=== PATIENT | male | born 1995 | race American Indian/Alaskan Native ===

== ENCOUNTER 2020-06-10 15:33 | Emergency (ER) | payer OTHER ==
[2020-06-10 15:52] VITALS: BP 104/58
[2020-06-10] MEDS ORDERED: methylPREDNISolone Sod Succinate 125 MG/2 ML INJ IM ONE (16:03)
[2020-06-10] MEDS ORDERED: IPRATROPIUM/ALBUTEROL SULFATE 3 ML AMPUL.NEB IH ONE (16:03)
--- NOTE | 2020-06-10 16:07 | Event Note ---
ED Screening Note Date of service: 06/10/20 Time: 16:05 ED Screening Note: pt with hx asthma and tobacco abuse c/o chest tightness and SOB x 12 hrs. Took last dose of inhaler this morning Had some wheezing but improved. Denies f/c, or uri symptoms. hx asthma admission, last was 6mths ago PE: Pt not in any respiratory distress; VS stable. This initial assessment/diagnostic orders/clinical plan/treatment(s) is/are subject to change based on patients health status, clinical progression and re- assessment by fellow clinical providers in the ED. Further treatment and workup at subsequent clinical providers discretion. Patient/guardian urged not to elope from the ED as their condition may be serious if not clinically assessed and managed. Initial orders include: Duoneb tx Solumedrol IM
--- NOTE | 2020-06-10 16:41 | Emergency Department Report ---
- General Chief Complaint: Dyspnea/Respdistress Stated Complaint: DRY COUGH X 2 WEEKS Source: patient Mode of arrival: Ambulatory Limitations: No Limitations - History of Present Illness Initial Comments: 25-year-old male with a past medical history of tobacco use presents to the ER today with complaints of a cough for the past 2 weeks. Patient states that he has had a productive cough and "a little" shortness of breath for the past 2 weeks. Patient states that he was in [place] for the past 3 days, and he seems like when he came back from [place] his cough got worse. He reports associated rhinorrhea, nasal congestion and sneezing. He denies any apparent ill contacts. He denies any fever or chills. He reports no other symptoms at this time. MD Complaint: cough -: Gradual (2), week(s) (2) - Related Data Previous Rx's Medication Instructions Recorded Last Taken Type Albuterol Mdi (or & Nicu Only) 2 puff IH QID PRN #8.5 gram 06/10/20 Unknown Rx [ProAir HFA Inhaler] Azithromycin [Zithromax Z-SHARRI] 250 mg PO DAILY #1 pack 06/10/20 Unknown Rx Benzonatate [Tessalon Perles] 100 mg PO Q8HR PRN #30 capsule 06/10/20 Unknown Rx Allergies Allergy/AdvReac Type Severity Reaction Status Date / Time No Known Allergies Allergy Unverified 02/19/20 14:53 ED Review of Systems ROS: Stated complaint: DRY COUGH X 2 WEEKS Other details as noted in HPI Comment: All other systems reviewed and negative Constitutional: denies: chills, diaphoresis, fever, weakness Eyes: denies: eye pain, eye discharge, vision change ENT: congestion, other (Rhinorrhea). denies: dental pain, hearing loss, epistaxis Respiratory: cough, shortness of breath. denies: wheezing Cardiovascular: denies: chest pain, palpitations, syncope, paroxysmal nocturnal dyspnea Gastrointestinal: denies: abdominal pain, nausea, vomiting, diarrhea, constipation, hematemesis, melena, hematochezia Genitourinary: denies: urgency, dysuria Musculoskeletal: denies: back pain, joint swelling, arthralgia, myalgia Skin: denies: rash, lesions, change in color, change in hair/nails, pruritus Neurological: denies: headache, weakness, paresthesias Psychiatric: denies: anxiety, depression Hematological/Lymphatic: denies: easy bleeding, easy bruising ED Past Medical Hx - Past Medical History Previous Medical History?: No - Surgical History Past Surgical History?: No - Medications Home Medications: Home Medications Medication Instructions Recorded Confirmed Last Taken Type Albuterol Mdi (or & Nicu Only) 2 puff IH QID PRN #8.5 gram 06/10/20 Unknown Rx [ProAir HFA Inhaler] Azithromycin [Zithromax Z-SHARRI] 250 mg PO DAILY #1 pack 06/10/20 Unknown Rx Benzonatate [Tessalon Perles] 100 mg PO Q8HR PRN #30 capsule 06/10/20 Unknown Rx ED Physical Exam - General Limitations: No Limitations General appearance: alert, in no apparent distress - Head Head exam: Present: atraumatic, normocephalic, normal inspection - Eye Eye exam: Present: normal appearance, PERRL, EOMI Pupils: Present: normal accommodation - ENT ENT exam: Present: normal exam, normal orophraynx, mucous membranes moist, TM's normal bilaterally - Neck Neck exam: Present: normal inspection, full ROM. Absent: meningismus - Respiratory Respiratory exam: Present: normal lung sounds bilaterally. Absent: respiratory distress, wheezes, rales, rhonchi - Cardiovascular Cardiovascular Exam: Present: regular rate, normal rhythm, normal heart sounds - GI/Abdominal GI/Abdominal exam: Present: soft. Absent: distended, tenderness, guarding, rebound - Neurological Exam Neurological exam: Present: alert, oriented X3, CN II-XII intact, normal gait - Psychiatric Psychiatric exam: Present: normal affect, normal mood - Skin Skin exam: Present: intact ED Course Vital Signs 06/10/20 15:51 Temperature 98.3 F Pulse Rate 77 Respiratory 18 Rate Blood Pressure 104/58 [Right] O2 Sat by Pulse 99 Oximetry ED Medical Decision Making - Radiology Data Radiology results: report reviewed Ordering Physician: ANIKET PATEL Date of Service: 06/10/20 Procedure(s): XR chest routine 2V Accession Number(s): [id number] cc: ANIKET PATEL Fluoro Time In Minutes: CHEST 2 VIEWS INDICATION: cough x 2 weeks. COMPARISON: None. FINDINGS: Support devices: None. Heart: Within normal limits. Lungs/Pleura: No acute air space or interstitial disease. No significant pleural effusion. IMPRESSION: No acute findings. Signer Name: Brent Gar MD Signed: 06/10/2020 5:29 PM Workstation Name: [id number] Transcribed By: TINO Dictated By: Brent Gar MD Electronically Authenticated By: Brent Gar MD Signed Date/Time: 06/10/201728 DD/ 28 TD/TT: - Medical Decision Making 25-year-old male with a past medical history of tobacco use presents to the ER today with complaints of a cough for the past 2 weeks. Patient states that he has had a productive cough and "a little" shortness of breath for the past 2 weeks. Patient states that he was in [place] for the past 3 days, and he seems like when he came back from [place] his cough got worse. He reports associated rhinorrhea, nasal congestion and sneezing. He denies any apparent ill contacts. He denies any fever or chills. He reports no other symptoms at this time. While in the waiting room waiting for the x-ray patient got a call from his saying that she was COVID-19 positive. 180: Chest x-ray shows nothing acute. Patient is well-appearing, nontoxic, and he is not in any acute pain or respiratory distress. He is neurologically intact with a normal gait in the ER. His Vital signs are stable. No indication for any additional work up or admission at this time. Discussed suspected diagnosis and treatment plan with patient. Recommend that he gets an outpatient COVID-19 test or if his job recommend that he just quarantine then he should follow his job protocol. Patient expressed understanding of instructions and agree with plan. Patient was stable at time of discharge. Critical care attestation.: If time is entered above; I have spent that time in minutes in the direct care of this critically ill patient, excluding procedure time. ED Disposition Clinical Impression: URI (upper respiratory infection), Acute bronchitis, Exposure to COVID-19 virus Disposition: - TO HOME OR SELFCARE Is pt being admited?: No Does the pt Need Aspirin: No Condition: Stable Instructions: Acute Bronchitis, Adult, [id number], Upper Respiratory Infection, Adult, [id number], Acute Bronchitis (ED), COVID-19: How to Protect Yourself and Others - [facility] Additional Instructions: Take the cough medication, and antibiotic and use the inhaler as prescribed. Since your is COVID-19 positive, you can get an outpatient COVID-19 test or or you can just quarantine for the next 10 to 14 days per usual protocol. Drink lots of water. Recommend taking a multivitamin containing vitamin C D and zinc to help boost your immune system. Follow-up with the primary care doctor listed on your discharge instructions. Return to the ER if your symptoms worsens or changes in any way. Prescriptions: Albuterol Mdi (or & Nicu Only) [ProAir HFA Inhaler] 2 puff IH QID PRN #8.5 gram PRN Reason: Shortness Of Breath Benzonatate [Tessalon Perles] 100 mg PO Q8HR PRN #30 capsule PRN Reason: Cough Azithromycin [Zithromax Z-SHARRI] 250 mg PO DAILY #1 pack Referrals: TESSIE CRUZ MD [Staff Physician] - 3-5 Days Time of Disposition: 17:54
--- NOTE | 2020-06-10 17:33 | XRay Report ---
CHEST 2 VIEWS INDICATION: cough x 2 weeks. COMPARISON: None. FINDINGS: Support devices: None. Heart: Within normal limits. Lungs/Pleura: No acute air space or interstitial disease. No significant pleural effusion. IMPRESSION: No acute findings. Signer Name: Brent Gar MD Signed: 06/10/2020 5:29 PM Workstation Name: [id number]
== END 2020-06-10 18:02 | disposition home or self-care (01) ==
LOC: ED 15:33
DX: J06.9 Acute upper respiratory infection, unspecified (principal); J20.9 Acute bronchitis, unspecified; Z20.822 Contact with and (suspected) exposure to COVID-19; Z79.899 Other long term (current) drug therapy
CPT/HCPCS: 71046; 99283

== ENCOUNTER 2020-06-28 22:22 | Emergency (ER) | payer OTHER | END 2020-06-29 | disposition left against medical advice (07) | LOC: ED 22:22 | DX: Z00.8 Encounter for other general examination (principal); Z53.21 Procedure and treatment not carried out due to patient leaving prior to being seen by health care provider ==